=== PATIENT | male | born 1960 | race Caucasian/White ===

== ENCOUNTER 2016-09-04 14:35 | Emergency (ER) | payer BC ==
[2016-09-04 14:42] VITALS: RESP 18
--- NOTE | 2016-09-04 15:27 | ED ---
General Adult HPI - General Chief complaint: Recheck/Abnormal Lab/Rx Stated complaint: labs-sent by Time Seen by Provider: 09/04/16 14:48 Source: patient, RN notes reviewed Mode of arrival: ambulatory Limitations: no limitations - History of Present Illness Initial comments: Chief complaint and history of present illness is a 55-year-old male was having a sore throat for 3 weeks. He was treated sulfamethoxazole. Continues to have a beefy red throat. He had lab work done yesterday and was told to come the emergency room for rehydration. Patient is otherwise denying any headache he has chronic neck pain. Cervical disc disease. No chest pain or shortness of breath. He has had diarrhea for 2 days. - Related Data Home Medications Medication Instructions Recorded Confirmed Gabapentin [Neurontin] 800 mg PO TID 09/21/13 09/04/16 Hydrocodone/Acetaminophen 1 tab PO TID 09/21/13 09/04/16 [Hydrocodone/Acetaminophen 10-325] Omeprazole [PriLOSEC] 40 mg PO DAILY 09/21/13 09/04/16 ALPRAZolam [Xanax] 1 mg PO DAILY 01/14/14 09/04/16 Varenicline Tartrate [Chantix] 1 tab PO DAILY 09/03/14 09/04/16 Testosterone Cypionate 100 mg IM SA 09/04/14 09/04/16 [Depo-Testosterone] Buprenorphine [Butrans 20 MCG/HOUR] 1 patch TRANSDERM PIMENTEL 09/04/16 09/04/16 Carbidopa-Levodopa 10-100 mg 1 tab PO TID 09/04/16 09/04/16 [Sinemet 10-100] Diphenoxylate HCl/Atropine 2 tab PO BID 09/04/16 09/04/16 [Lomotil] Fluconazole [Diflucan] 150 mg PO DAILY 09/04/16 09/04/16 Mometasone/Formoterol [Dulera 200 2 puff INHALATION RT-BID 09/04/16 09/04/16 Mcg/5 Mcg Inhaler] PARoxetine HCL [Paxil] 40 mg PO DAILY 09/04/16 09/04/16 Phentermine HCl [Adipex-P] 37.5 mg PO QAM 09/04/16 09/04/16 Ranitidine HCl [Zantac] 150 mg PO BID 09/04/16 09/04/16 Roflumilast [Daliresp] 500 mg PO DAILY 09/04/16 09/04/16 Sucralfate [Carafate] 1 gm PO QID 09/04/16 09/04/16 Sulfamethox-Tmp 800-160Mg [Bactrim 1 tab PO Q12HR 09/04/16 09/04/16 DS 800-160 mg] Tamsulosin HCl [Flomax] 0.4 mg PO DAILY 09/04/16 09/04/16 Topiramate [Topamax] 50 mg PO BID 09/04/16 09/04/16 Umeclidinium Brm/Vilanterol Tr 1 puff INHALATION RT-BID 09/04/16 09/04/16 [Anoro Ellipta 62.5-25 Mcg INH] Allergies Allergy/AdvReac Type Severity Reaction Status Date / Time albuterol sulfate AdvReac Unknown Verified 09/04/16 15:02 [From Volmax] methylprednisolone AdvReac Rash/Hives Verified 09/04/16 15:02 [From Medrol] Review of Systems ROS Statement: Those systems with pertinent positive or pertinent negative responses have been documented in the HPI. Review of systems. Patient denying any headache. He does have continuous sore throat for 3 weeks with beefy red. He has chronic neck pain for cervical disc disease. He's had multiple surgeries on his neck. No chest pain or shortness of breath this time the patient has had loose stool for 2 days. No neuro deficits. All systems reviewed Labs drawn at the physician's office findings a rolled the low GFR 52, elevated SGOT of 89 CK of 1297, myoglobin elevated at 559, absolute neutrophils 9.5 anion gap 2.8, low liver enzymes otherwise within normal limits. ROS Other: All systems not noted in ROS Statement are negative. Past Medical History Past Medical History: Cancer, COPD, GERD/Reflux Additional Past Medical History / Comment(s): degenerative disk back and neck, numbness fingers left hand (resolved), sob , skin cancer History of Any Multi-Drug Resistant Organisms: None Reported Past Surgical History: Back Surgery, Hernia Repair, Orthopedic Surgery Additional Past Surgical History / Comment(s): neck surgery x 2, back fusion, lithotripsy, orif rt wrist, rt ankle tendon surgery, manuel eye surgery for lazy eye Past Anesthesia/Blood Transfusion Reactions: No Reported Reaction Past Psychological History: Anxiety Smoking Status: Current every day smoker Past Alcohol Use History: None Reported, Occasional Past Drug Use History: None Reported - Past Family History Father Family Medical History: Unable to Obtain General Exam Limitations: no limitations Course Vital Signs 09/04/16 14:38 Temperature 98.9 F Pulse Rate 103 H Respiratory 18 Rate Blood Pressure 145/84 O2 Sat by Pulse 95 Oximetry EKG Findings - EKG Comments: EKG Findings:: EKG was done and reviewed at 1627 showing sinus bradycardia rate [address] elevation no ectopy. No ischemic changes noted. HI was 116 QRS [address] QT [address] George Medical Decision Making - Medical Decision Making Medical decision making the patient's white count 11.4 hemoglobin 15 hematocrit of 49, potassium is 4.5 with BUN 12 creatinine 1.37 and GFR 54. Patient denies knowing never had any renal insufficiency acute renal injury in the past. CK 684 MB is 13.1 troponin less than 0.012. The patient did have an EKG done which showed sinus bradycardia but no acute elevation or ischemic changes. Upon questioning the patient denies any chest pain but does report muscle aches and pains for at least a week or more. Without any injuries to his knowledge or overexercising. He is on multiple medications. Recently diagnosed Parkinson medications of, board. He is also on Chantix for smoking. - Lab Data Result diagrams: 09/04/16 15:27 09/04/16 15:27 Lab Results 09/04/16 09/04/16 09/04/16 Range/Units 15:27 15:27 15:27 WBC 11.4 H (3.8-10.6) k/uL RBC 5.14 (4.30-5.90) m/uL Hgb 15.4 (13.0-17.5) gm/dL Hct 49.5 (39.0-53.0) % MCV 96.5 (80.0-100.0) fL MCH 30.0 (25.0-35.0) pg MCHC 31.1 (31.0-37.0) g/dL RDW 15.8 H (11.5-15.5) % Plt Count 218 (150-450) k/uL Neutrophils % 82 % Lymphocytes % 10 % Monocytes % 5 % Eosinophils % 1 % Basophils % 1 % Neutrophils # 9.3 H (1.3-7.7) k/uL Lymphocytes # 1.1 (1.0-4.8) k/uL Monocytes # 0.6 (0-1.0) k/uL Eosinophils # 0.1 (0-0.7) k/uL Basophils # 0.1 (0-0.2) k/uL Hypochromasia Slight Sodium 143 (137-145) mmol/L Potassium 4.5 (3.5-5.1) mmol/L Chloride 108 H (98-107) mmol/L Carbon Dioxide 25 (22-30) mmol/L Anion Gap 10 mmol/L BUN 12 (9-20) mg/dL Creatinine 1.37 H (0.66-1.25) mg/dL Est GFR (MDRD) Af Amer >60 (>60 ml/min/1.73 sqM) Est GFR (MDRD) Non-Af 54 (>60 ml/min/1.73 sqM) Glucose 70 L (74-99) mg/dL Calcium 9.7 (8.4-10.2) mg/dL Total Bilirubin 0.5 (0.2-1.3) mg/dL AST 76 H (17-59) U/L ALT 61 (21-72) U/L Alkaline Phosphatase 84 (38-126) U/L Total Creatine Kinase 684 H (55-170) U/L CK-MB (CK-2) 13.1 H* (0.0-2.4) ng/mL CK-MB (CK-2) Rel Index 1.9 Troponin I <0.012 (0.000-0.034) ng/mL Total Protein 7.1 (6.3-8.2) g/dL Albumin 4.0 (3.5-5.0) g/dL Disposition Clinical Impression: Acute renal failure due to rhabdomyolysis Disposition: ADMITTED IP TO THIS HOSP Condition: Fair
[2016-09-04 15:40] LABS: Basophils # (A) 0.1 k/uL (0-0.2); Basophils % (A) 1 %; CH 30.5; CHCM 31.7; Eosinophils # (A) 0.1 k/uL (0-0.7); Eosinophils % (A) 1 %; HCT 49.5 % (39.0-53.0); HDW 2.66; HGB 15.4 gm/dL (13.0-17.5); Hypochromasia Slight; Luc # (Auto) 0.19; Luc % (Auto) 2; Lymphocytes # (A) 1.1 k/uL (1.0-4.8); Lymphocytes % (A) 10 %; MCHC 31.1 g/dL (31.0-37.0); MCV 96.5 fL (80.0-100.0); Mean Platelet Volume 6.3; Monocytes # (A) 0.6 k/uL (0-1.0); Monocytes % (A) 5 %; Neutrophils # (A) 9.3 k/uL (1.3-7.7); Neutrophils % (A) 82 %; RBC 5.14 m/uL (4.30-5.90); RDW 15.8 % (11.5-15.5); WBC 11.4 k/uL (3.8-10.6); WBC (Perox) 11.43
[2016-09-04 15:45] LABS: ALT 61 U/L (21-72); AST 76 U/L (17-59); Alkaline Phosphatase 84 U/L (38-126); Anion Gap 10 mmol/L; Blood Urea Nitrogen 12 mg/dL (9-20); Calcium 9.7 mg/dL (8.4-10.2); Carbon Dioxide 25 mmol/L (22-30); Chloride 108 mmol/L (98-107); Glucose 70 mg/dL (74-99); Non-African American GFR(MDRD) 54 (>60 ml/min/1.73 sqM); Potassium 4.5 mmol/L (3.5-5.1); Sodium 143 mmol/L (137-145); Total Bilirubin 0.5 mg/dL (0.2-1.3); Total Protein 7.1 g/dL (6.3-8.2)
[2016-09-04 15:56] LABS: Creatine Kinase 684 U/L (55-170)
[2016-09-04 16:09] LABS: Troponin I <0.012 ng/mL (0.000-0.034)
[2016-09-04 16:12] LABS: Creatine Kinase MB 13.1 ng/mL (0.0-2.4)
[2016-09-04] MEDS ORDERED: SODIUM CHLORIDE 0.9% 2,000 ML IV ONE (16:23)
[2016-09-04] MEDS ORDERED: NALOXONE 0.4 MG/ML 1 ML VIAL IV PRN (16:39)
[2016-09-04] MEDS ORDERED: SODIUM CHLORIDE 0.9% 1,000 ML IV SCH (16:45)
[2016-09-04 17:06] LABS: Appearance,Urine Clear (Clear); Bilirubin,Urine Negative (Negative); Glucose,Urine (UA) Negative (Negative); Ketones,Urine Negative (Negative); Leukocyte Esterase,Urine Negative (Negative); Nitrite,Urine Negative (Negative); PH, Urine 6.5 (5.0-8.0); Protein,Urine Negative (Negative); Specific Gravity,Urine 1.009 (1.001-1.035); UA Billing (MACRO vs. MICRO) CHEM; Urobilinogen,Urine <2.0 mg/dL (<2.0)
[2016-09-04] MEDS ORDERED: SUCRALFATE 1 GM TAB PO SCH (17:30)
[2016-09-04 17:58] VITALS: BP 147/88; PULSE 56; TEMP 98.8
[2016-09-04] MEDS ORDERED: SYMBICORT 160-4.5 MCG INHALER INHALATION SCH (20:00)
[2016-09-04] MEDS ORDERED: NON-FORMULARY DRUG (Umeclidinium Brm/Vilanterol Tr [Anoro Ellipta 62.5-25 Mcg Inh] 1 PUFF) INHALATION SCH (20:00)
[2016-09-04] MEDS ORDERED: TOPIRAMATE 25 MG TAB PO SCH (21:00)
--- NOTE | 2016-09-04 21:41 | HP ---
H&P, DISCHARGE SUMMARY AND CONSULTATION DATE OF ADMISSION: Patient is a pleasant 55-year-old gentleman who was sent in here from ( ) PCP ( ) clinic because of abnormal labs, including minimally elevated CK of 700. Patient was seen about 3 weeks ago ( ) and patient was given Bactrim. Continues to have a sore throat. Patient came in here to the ER for hydration and patient received 2 L of IV fluid already. Patient was found to be in acute renal failure with creatinine of 1.20. Baseline creatinine ( ) I believe worsening creatinine is secondary to the Bactrim he received. Most of the time Bactrim causes ( ). I ordered urine labs, including urine esophinophils, ( ) random creatinine and ( ) sodium. Patient in my opinion can be discharged, as he received 2 L of IV fluids, and same thing was conveyed to the ER physician. Patient will be discharged. Patient was wheezing on exam. Patient does have history of COPD. I also requested ( ) albuterol, follow up with ( ) cessation counseling was provided. Follow up with Dr. David closely in 3 to 7 days. Regarding elevated CK, there is only minimal elevation. My suspicion is extremely low that it causes rhabdomyolysis or any kidney dysfunction. His kidney dysfunction is secondary to Bactrim. Urine ( ) ordered as well. REVIEW OF SYSTEMS: CONSTITUTIONAL: No fever, no malaise, no fatigue. HEENT: No recent visual problems or hearing problems. Denied any sore throat. CARDIOVASCULAR: No chest pain, orthopnea, PND, no palpitations, no syncope. PULMONARY: No shortness of breath, no cough, no hemoptysis. GASTROINTESTINAL: No diarrhea, no nausea, no vomiting, no abdominal pain. Normoactive bowel sounds. NEUROLOGICAL: No headaches, no weakness, no numbness. HEMATOLOGICAL: Denies any bleeding or petechiae. GENITOURINARY: Denies any burning micturition, frequency, or urgency. MUSCULOSKELETAL/RHEUMATOLOGICAL: Denies any joint pain, swelling, or any muscle pain. ENDOCRINE: Denies any polyuria or polydipsia. ( ) still complaining of sore throat with cough and ( ) sputum production. The rest of the 14 point review of systems is negative. Home medications include: 1. Gabapentin. 2. Hydrocodone/acetaminophen. 3. Omeprazole. 4. Alprazolam. 5. Varenicline. 6. Testosterone. 7. Bupropion. 8. Carbidopa levodopa. 9. Diphenoxylate. 10. Fluconazole. 11. Mometasone/Formoterol. 12. Paroxetine. 13. Phentermine. 14. Ranitidine. 15. Daliresp. 16. Sucralfate. 17. Bactrim. 18. Tamsulosin. 19. Topamax. ALLERGIES: ALBUTEROL, METHYLPREDNISOLONE. Past medical history is significant for: 1. COPD. 2. Gastroesophageal reflux disease. 3. Degenerative neck disease. 4. Benign prostatic hypertrophy. 5. Not sure why he is taking carbidopa levodopa. SOCIAL HISTORY: Patient does smoke. Using Chantix ( ) for smoking. Denied any alcohol abuse or any drug abuse. FAMILY HISTORY: Denied any family history of hypertension, diabetes mellitus ( ) PHYSICAL EXAMINATION: Temperature 98.1, pulse of 103, respiratory rate of 18. Blood pressure is 145/84. Saturating at 94% on room air. GENERAL: The patient is alert and oriented x3, not in any acute distress. Well developed, well nourished. HEENT: Patient does have redness in the throat. CARDIOVASCULAR: S1 and S2 present. No murmurs, rubs, or gallops. PULMONARY: Diffuse expiratory wheezing. Fairly good air entry into bilateral lung carrillo. No crackles appreciated. ABDOMEN: Soft, nontender, nondistended, normoactive bowel sounds. No palpable organomegaly. MUSCULOSKELETAL: No joint swelling or deformity. EXTREMITIES: No cyanosis, clubbing, or pedal edema. NEUROLOGICAL: Gross neurological examination did not reveal any focal deficits. SKIN: No rashes. LABORATORY DATA: Significant ones ( ) HPI. ASSESSMENT AND PLAN: 1. Bronchitis with mild chronic obstructive pulmonary disease exacerbation. Management as mentioned above. Although patient is clinically stable, can be discharged. 2. Acute renal failure secondary to Bactrim. Management as mentioned above. 3. ( ) dysfunction. May repeat basic metabolic profile in 3 days. 4. Troponin is negative. CK-MB is minimally elevated, but since troponin is negative, my suspicion is low ( ) patient does not have any symptoms related to chest pain. 5. Gastroesophageal reflux disease. 6. Benign prostatic hypertrophy. 7. Peripheral neuropathy. For above-mentioned chronic medical problems, he can go ahead and continue his home medications. Patient can be discharged from my perspective. This dictation is both H&P and discharge summary. Patient will follow up with Dr. Saeed David in 3 to 7 days. Patient is requesting to be discharged. Patient will be given doxycycline for his bronchitis, which appears to be chronic bronchitis mostly.
[2016-09-04] MEDS ORDERED: CARBIDOPA-LEVODOPA 10-100 MG 1 EACH TAB PO SCH (22:00)
[2016-09-04] MEDS ORDERED: HYDROcodone/APAP 10-325MG 1 EACH TAB PO SCH (22:00)
[2016-09-04] MEDS ORDERED: GABAPENTIN 400 MG CAP PO SCH (22:00)
[2016-09-05] MEDS ORDERED: VARENICLINE 1 MG TAB PO SCH (09:00)
[2016-09-05] MEDS ORDERED: PARoxetine 20 MG TAB PO SCH (09:00)
[2016-09-05] MEDS ORDERED: TAMSULOSIN 0.4 MG CAP.ER.24H PO SCH (09:00)
[2016-09-05] MEDS ORDERED: FLUCONAZOLE 150 MG TAB PO SCH (09:00)
[2016-09-05] MEDS ORDERED: ROFLUMILAST 500 MG PO SCH (09:00)
[2016-09-05] MEDS ORDERED: ALPRAZolam 0.5 MG TAB PO SCH (09:00)
[2016-09-05] MEDS ORDERED: PANTOPRAZOLE 40 MG/10 ML VIAL IV SCH (09:00)
[2016-09-08] MEDS ORDERED: BUPRENORPHINE TRANSDERM SCH (09:00)
== END 2016-09-04 17:58 | disposition other institution (70) ==
LOC: EC 14:35 → UNDOADMIN 16:39 → 4MS4W 16:39 → EC 17:58
DX: M62.82 Rhabdomyolysis (principal); N17.9 Acute kidney failure, unspecified; K21.9 Gastro-esophageal reflux disease without esophagitis; F41.9 Anxiety disorder, unspecified; F17.200 Nicotine dependence, unspecified, uncomplicated; Z85.828 Personal history of other malignant neoplasm of skin; Z88.8 Allergy status to other drugs, medicaments and biological substances; Z79.899 Other long term (current) drug therapy
CPT/HCPCS: 36415; 80053; 81003; 82550; 82553; 82570; 84300; 84484; 85025; 87086; 87205; 93005; 96360; 99284

== ENCOUNTER → 2016-09-12 | Outpatient (CLI) | payer BC ==
[2016-09-12 15:40] LABS: Anion Gap 8 mmol/L; Blood Urea Nitrogen 10 mg/dL (9-20); Calcium 9.5 mg/dL (8.4-10.2); Carbon Dioxide 31 mmol/L (22-30); Chloride 100 mmol/L (98-107); Glucose 96 mg/dL (74-99); Non-African American GFR(MDRD) >60 (>60 ml/min/1.73 sqM); Potassium 4.7 mmol/L (3.5-5.1); Sodium 139 mmol/L (137-145)
== END | disposition home or self-care (01) ==
LOC: LABWHC1 14:45
PROVIDERS: ATTEND Physician Assistant
DX: N17.9 Acute kidney failure, unspecified (principal)
CPT/HCPCS: 36415; 80048

== ENCOUNTER → 2016-10-11 | Outpatient (CLI) | payer BC ==
[2016-10-11 16:33] LABS: Rheumatoid Factor, Qnt <9 IU/mL (<12)
== END ==
LOC: LABWHC1 15:51
PROVIDERS: ATTEND Otolaryngology
DX: J38.01 Paralysis of vocal cords and larynx, unilateral (principal); R53.83 Other fatigue; R52 Pain, unspecified
CPT/HCPCS: 36415; 84439; 84443; 86038; 86431; 86618

== ENCOUNTER → 2016-10-17 | Outpatient (CLI) | payer BC ==
--- NOTE | 2016-10-17 08:50 | CT ---
EXAMINATION TYPE: CT neck chest w con DATE OF EXAM: 10/17/2016 8:00 AM COMPARISON: NONE HISTORY: Lt vocal cord paralysis, cough per order. CT DLP: neck 273.1 and chest 347.7 mGycm Automated exposure control for dose reduction was used. CONTRAST: CT scan of the neck and chest are performed following with IV Contrast, patient injected with 100 mL of Omnipaque 300. Axial images are obtained, coronal and sagittal reformatted images are reviewed. FINDINGS: NECK: Airway: There is nonspecific asymmetric fullness right piriform sinus without obvious mass seen near axial images 33 through 35. Parotid/submandibular glands: No gross abnormality seen. Carotid/Vascular Structures: No significant stenosis of carotid bulb level is present bilaterally Osseous Structures: There is hemangioma anterior T4 vertebral body level. There is moderate to severe disc space narrowing C5-C6, C6-C7, C7-T1 levels. Moderate spurring C6-C7 and C7-T1 levels is seen. T here is long segment posterior decompression in the cervical spine from C3 through T1 level. Other: No suspicious greater than 1 cm neck adenopathy is seen. CHEST: LUNGS: Respiratory motion artifact is present making evaluation slightly suboptimal. Linear scarring posterior right upper lobe is present on axial image 22. No concerning parenchymal nodule or mass is identified. No pleural effusion or pneumothorax is seen bilaterally. Tracheobronchial tree is patent. MEDIASTINUM: There are no greater than 1 cm hilar or mediastinal lymph nodes. No cardiomegaly or pe ricardial effusion is seen. Coronary artery calcification is present. OTHER: Small degree of bilateral gynecomastia is present. There is 4 mm nonobstructing calculus upper pole level right kidney. Multilevel osseous hemangiomas are identified largest near thoracolumbar ju nction. IMPRESSION: 1. Asymmetric soft tissue fullness of right piriform sinus without obvious mass, consider direct visu alization otherwise no suspicious finding is seen to account for patient's symptoms. 2. Mild emphysematous change without suspicious acute pulmonary process. 3. Moderate to severe multilevel degenerative changes mid to lower cervical spine with posterior long segment decompression surgery noted.
== END | disposition home or self-care (01) ==
LOC: RADCTMAIN 07:19
PROVIDERS: ATTEND Otolaryngology
DX: J43.9 Emphysema, unspecified (principal); M47.812 Spondylosis without myelopathy or radiculopathy, cervical region; R13.10 Dysphagia, unspecified; J38.01 Paralysis of vocal cords and larynx, unilateral; Z98.890 Other specified postprocedural states
CPT/HCPCS: 70491; 71260; Q9967

== ENCOUNTER 2016-10-21 21:25 | Emergency (ER) | payer BC ==
[2016-10-21 21:38] VITALS: RESP 18
[2016-10-21] MEDS ORDERED: ONDANSETRON 4 MG/2 ML VIAL IVP STA (22:49)
[2016-10-21] MEDS ORDERED: SODIUM CHLORIDE 0.9% 500 ML IV STA (22:49)
--- NOTE | 2016-10-21 22:54 | ED ---
Abdominal Pain HPI - General Chief Complaint: Abdominal Pain Stated Complaint: Abd Pain Time Seen by Provider: 10/21/16 22:29 Source: patient Mode of arrival: wheelchair Limitations: no limitations - History of Present Illness MD Complaint: abdominal pain Onset/Timin -: hour(s) Location: periumbilical Radiation: none Migration to: no migration Severity: severe Quality: sharp Consistency: constant Improves With: nothing Worsens With: nothing Associated Symptoms: nausea - Related Data Home Medications Medication Instructions Recorded Confirmed Gabapentin [Neurontin] 800 mg PO TID 09/21/13 10/21/16 Hydrocodone/Acetaminophen 1 tab PO TID 09/21/13 10/21/16 [Hydrocodone/Acetaminophen 10-325] Omeprazole [PriLOSEC] 40 mg PO DAILY 09/21/13 10/21/16 ALPRAZolam [Xanax] 1 mg PO DAILY 01/14/14 10/21/16 Varenicline Tartrate [Chantix] 1 tab PO DAILY 09/03/14 10/21/16 Testosterone Cypionate 100 mg IM SA 09/04/14 10/21/16 [Depo-Testosterone] Buprenorphine [Butrans 20 MCG/HOUR] 1 patch TRANSDERM PIMENTEL 09/04/16 10/21/16 Carbidopa-Levodopa 10-100 mg 1 tab PO TID 09/04/16 10/21/16 [Sinemet 10-100] Diphenoxylate HCl/Atropine 2 tab PO BID 09/04/16 10/21/16 [Lomotil] Fluconazole [Diflucan] 150 mg PO DAILY 09/04/16 10/21/16 Mometasone/Formoterol [Dulera 200 2 puff INHALATION RT-BID 09/04/16 10/21/16 Mcg/5 Mcg Inhaler] PARoxetine HCL [Paxil] 40 mg PO DAILY 09/04/16 10/21/16 Phentermine HCl [Adipex-P] 37.5 mg PO QAM 09/04/16 10/21/16 Ranitidine HCl [Zantac] 150 mg PO BID 09/04/16 10/21/16 Roflumilast [Daliresp] 500 mg PO DAILY 09/04/16 10/21/16 Sucralfate [Carafate] 1 gm PO QID 09/04/16 10/21/16 Sulfamethox-Tmp 800-160Mg [Bactrim 1 tab PO Q12HR 09/04/16 10/21/16 DS 800-160 mg] Tamsulosin HCl [Flomax] 0.4 mg PO DAILY 09/04/16 10/21/16 Topiramate [Topamax] 50 mg PO BID 09/04/16 10/21/16 Umeclidinium Brm/Vilanterol Tr 1 puff INHALATION RT-BID 09/04/16 10/21/16 [Anoro Ellipta 62.5-25 Mcg INH] Previous Rx's Medication Instructions Recorded Albuterol Nebulized [Ventolin 2.5 mg INHALATION Q4H PRN 10 Days 09/04/16 Nebulized] Budesonide-Formot 160-4.5 Mcg 2 puff INHALATION BID 14 Days 09/04/16 [Symbicort 160-4.5 Mcg Inhaler] Doxycycline Hyclate [Vibramycin] 100 mg PO BID 10 Days 09/04/16 Hydrocodone/Acetaminophen [Butler 1 each PO Q6HR PRN #20 tab 10/22/16 5-325] Ondansetron Odt [Zofran ODT] 4 mg PO Q8HR PRN #10 tab 10/22/16 Tamsulosin [Flomax] 0.4 mg PO DAILY #14 cap 10/22/16 Allergies Allergy/AdvReac Type Severity Reaction Status Date / Time albuterol sulfate AdvReac Unknown Verified 10/21/16 21:38 [From Volmax] methylprednisolone AdvReac Rash/Hives Verified 10/21/16 21:38 [From Medrol] Review of Systems ROS Statement: Those systems with pertinent positive or pertinent negative responses have been documented in the HPI. ROS Other: All systems not noted in ROS Statement are negative. Constitutional: Denies: fever, chills Respiratory: Reports: cough (States he has some baseline cough and mild dyspnea due to COPD), dyspnea, wheezes Cardiovascular: Denies: chest pain, palpitations, edema Gastrointestinal: Reports: as per HPI, abdominal pain, nausea, diarrhea ( Patient states he is been having diarrhea but states she has had normal bowel movements today). Denies: vomiting, constipation, hematemesis, melena, hematochezia Genitourinary: Denies: dysuria, hematuria Musculoskeletal: Reports: back pain (Chronic back pain) Skin: Denies: rash Neurological: Denies: headache, weakness, numbness Past Medical History Past Medical History: Cancer, COPD, GERD/Reflux Additional Past Medical History / Comment(s): degenerative disk back and neck, numbness fingers left hand (resolved), sob , skin cancer History of Any Multi-Drug Resistant Organisms: None Reported Past Surgical History: Back Surgery, Hernia Repair, Orthopedic Surgery Additional Past Surgical History / Comment(s): neck surgery x 2, back fusion, lithotripsy, orif rt wrist, rt ankle tendon surgery, manuel eye surgery for lazy eye Past Anesthesia/Blood Transfusion Reactions: No Reported Reaction Past Psychological History: Anxiety Smoking Status: Current every day smoker Past Alcohol Use History: None Reported, Occasional Past Drug Use History: None Reported - Past Family History Father Family Medical History: Unable to Obtain General Exam Limitations: no limitations General appearance: alert, in no apparent distress Head exam: Present: atraumatic, normocephalic Eye exam: Present: normal appearance. Absent: scleral icterus, conjunctival injection ENT exam: Present: normal oropharynx Respiratory exam: Present: normal lung sounds bilaterally. Absent: respiratory distress, wheezes, rales, rhonchi, stridor Cardiovascular Exam: Present: regular rate, normal rhythm, normal heart sounds. Absent: systolic murmur, diastolic murmur, rubs, gallop GI/Abdominal exam: Present: tenderness, rigid, diminished bowel sounds. Absent : distended, mass, pulsatile mass, hernia Extremities exam: Present: normal inspection, normal capillary refill. Absent: pedal edema, calf tenderness Back exam: Present: normal inspection. Absent: CVA tenderness (R), CVA tenderness (L) Neurological exam: Present: alert Skin exam: Present: warm, dry, intact, normal color. Absent: rash Course Vital Signs 10/21/16 10/22/16 21:34 00:14 Temperature 98.0 F 98.7 F Pulse Rate 67 61 Respiratory 18 18 Rate Blood Pressure 167/82 168/91 O2 Sat by Pulse 97 95 Oximetry Medical Decision Making - Lab Data Result diagrams: 10/21/16 23:08 10/21/16 23:08 Lab Results 10/21/16 10/21/16 10/21/16 Range/Units 23:08 23:08 23:08 WBC 10.1 (3.8-10.6) k/uL RBC 5.00 (4.30-5.90) m/uL Hgb 15.8 (13.0-17.5) gm/dL Hct 46.8 (39.0-53.0) % MCV 93.6 (80.0-100.0) fL MCH 31.6 (25.0-35.0) pg MCHC 33.7 (31.0-37.0) g/dL RDW 13.9 (11.5-15.5) % Plt Count 204 (150-450) k/uL Neutrophils % 76 % Lymphocytes % 15 % Monocytes % 5 % Eosinophils % 1 % Basophils % 1 % Neutrophils # 7.7 (1.3-7.7) k/uL Lymphocytes # 1.5 (1.0-4.8) k/uL Monocytes # 0.5 (0-1.0) k/uL Eosinophils # 0.1 (0-0.7) k/uL Basophils # 0.1 (0-0.2) k/uL Sodium 146 H (137-145) mmol/L Potassium 4.4 (3.5-5.1) mmol/L Chloride 107 (98-107) mmol/L Carbon Dioxide 26 (22-30) mmol/L Anion Gap 13 mmol/L BUN 16 (9-20) mg/dL Creatinine 1.50 H (0.66-1.25) mg/dL Est GFR (MDRD) Af Amer 59 (>60 ml/min/1.73 sqM) Est GFR (MDRD) Non-Af 49 (>60 ml/min/1.73 sqM) Glucose 105 H (74-99) mg/dL Plasma Lactic Acid Dylan 2.0 (0.7-2.0) mmol/L Calcium 9.9 (8.4-10.2) mg/dL Total Bilirubin 0.4 (0.2-1.3) mg/dL AST 28 (17-59) U/L ALT 34 (21-72) U/L Alkaline Phosphatase 92 (38-126) U/L Troponin I (0.000-0.034) ng/mL Total Protein 7.2 (6.3-8.2) g/dL Albumin 4.5 (3.5-5.0) g/dL Amylase 64 (30-110) U/L Lipase 89 (23-300) U/L 10/21/16 Range/Units 23:08 WBC (3.8-10.6) k/uL RBC (4.30-5.90) m/uL Hgb (13.0-17.5) gm/dL Hct (39.0-53.0) % MCV (80.0-100.0) fL MCH (25.0-35.0) pg MCHC (31.0-37.0) g/dL RDW (11.5-15.5) % Plt Count (150-450) k/uL Neutrophils % % Lymphocytes % % Monocytes % % Eosinophils % % Basophils % % Neutrophils # (1.3-7.7) k/uL Lymphocytes # (1.0-4.8) k/uL Monocytes # (0-1.0) k/uL Eosinophils # (0-0.7) k/uL Basophils # (0-0.2) k/uL Sodium (137-145) mmol/L Potassium (3.5-5.1) mmol/L Chloride (98-107) mmol/L Carbon Dioxide (22-30) mmol/L Anion Gap mmol/L BUN (9-20) mg/dL Creatinine (0.66-1.25) mg/dL Est GFR (MDRD) Af Amer (>60 ml/min/1.73 sqM) Est GFR (MDRD) Non-Af (>60 ml/min/1.73 sqM) Glucose (74-99) mg/dL Plasma Lactic Acid Dylan (0.7-2.0) mmol/L Calcium (8.4-10.2) mg/dL Total Bilirubin (0.2-1.3) mg/dL AST (17-59) U/L ALT (21-72) U/L Alkaline Phosphatase (38-126) U/L Troponin I <0.012 (0.000-0.034) ng/mL Total Protein (6.3-8.2) g/dL Albumin (3.5-5.0) g/dL Amylase (30-110) U/L Lipase (23-300) U/L Disposition Clinical Impression: Kidney stone on right side Disposition: HOME SELF-CARE Condition: Fair Instructions: Kidney Stones (ED) Prescriptions: Hydrocodone/Acetaminophen [Butler 5-325] 1 each PO Q6HR PRN #20 tab PRN Reason: Pain Ondansetron Odt [Zofran ODT] 4 mg PO Q8HR PRN #10 tab PRN Reason: Nausea Tamsulosin [Flomax] 0.4 mg PO DAILY #14 cap Referrals: Saeed David MD [Primary Care Provider] - 1-2 days
[2016-10-21 23:23] LABS: Basophils # (A) 0.1 k/uL (0-0.2); Basophils % (A) 1 %; CHCM 34.2; Eosinophils # (A) 0.1 k/uL (0-0.7); Eosinophils % (A) 1 %; HCT 46.8 % (39.0-53.0); HDW 3.14; HGB 15.8 gm/dL (13.0-17.5); Luc # (Auto) 0.17; Luc % (Auto) 2; Lymphocytes # (A) 1.5 k/uL (1.0-4.8); Lymphocytes % (A) 15 %; MCH 31.6 pg (25.0-35.0); MCHC 33.7 g/dL (31.0-37.0); MCV 93.6 fL (80.0-100.0); Monocytes # (A) 0.5 k/uL (0-1.0); Monocytes % (A) 5 %; Neutrophils # (A) 7.7 k/uL (1.3-7.7); Neutrophils % (A) 76 %; RDW 13.9 % (11.5-15.5); WBC 10.1 k/uL (3.8-10.6); WBC (Perox) 9.75
[2016-10-21 23:36] LABS: Calcium 9.9 mg/dL (8.4-10.2); Potassium 4.4 mmol/L (3.5-5.1); Total Bilirubin 0.4 mg/dL (0.2-1.3); Total Protein 7.2 g/dL (6.3-8.2)
[2016-10-22] MEDS ORDERED: MORPHINE SULFATE 4 MG/ML SYRINGE IV STA
--- NOTE | 2016-10-22 00:05 | CT ---
EXAM: CT Abdomen and Pelvis Without Intravenous Contrast CLINICAL HISTORY: Reason: abdominal pain TECHNIQUE: Axial computed tomography images of the abdomen and pelvis without intravenous contrast. CTDI is 7.2 mGy and DLP is 313.9 mGy-cm. This CT exam was performed using one or more of the following dose reduction techniques: automated exposure control, adjustment of the mA and/or kV according to patient size, and/or use of iterative reconstruction technique. Coronal and sagittal reformatted images were created and reviewed. COMPARISON: CT L Spine dated 01/19/14 FINDINGS: Lower thorax: No acute findings. ABDOMEN: Liver: Unremarkable. Gallbladder and bile ducts: Unremarkable. No calcified stones. No ductal dilation. Pancreas: Unremarkable. No ductal dilation. Spleen: Unremarkable. No splenomegaly. Adrenals: Unremarkable. No mass. Kidneys and ureters: Moderate right hydronephrosis with a 6.7 mm mid ureteral calculus. Bilateral renal cystic lesions are seen measuring up to 4.8 cm on the right and 1.6 cm on left. Bilateral intrarenal calculi are seen measuring up to 3 mm on the right and 4.4 mm on the left. Stomach and bowel: Unremarkable. No obstruction. No mucosal thickening. Appendix: No findings to suggest acute appendicitis. PELVIS: Bladder: Mild bladder wall thickening which may be from cystitis versus chronic outlet obstruction. Reproductive: Unremarkable as visualized. ABDOMEN and PELVIS: Intraperitoneal space: Unremarkable. No free air. No significant fluid collection. Bones/joints: L3-L5 laminectomy with posterior pedicle screws and interconnecting rods at L4 and L5. Associated postsurgical changes in the left iliac bone. Severe facet disease is seen at L2/L3 and L3/L4. Extensive vertebral body hemangiomas also seen. Soft tissues: Unremarkable. Vasculature: Unremarkable. No abdominal aortic aneurysm. Lymph nodes: Unremarkable. No enlarged lymph nodes. IMPRESSION: 1. Moderate right hydronephrosis with a 6.7 mm mid ureteral calculus. 2. Mild bladder wall thickening which may be from cystitis versus chronic outlet obstruction. 3. Bilateral renal cystic lesions are seen measuring up to 4.8 cm on the right and 1.6 cm on left. 4. Bilateral intrarenal calculi are seen measuring up to 3 mm on the right and 4.4 mm on the left. 5. L3-L5 laminectomy with posterior pedicle screws and interconnecting rods at L4 and L5. Associated postsurgical changes in the left iliac bone.
[2016-10-22] MEDS ORDERED: TAMSULOSIN 0.4 MG CAP.ER.24H PO STA (00:13)
[2016-10-22 01:40] VITALS: BP 158/85; PULSE 86; TEMP 98.8
== END 2016-10-22 01:30 | disposition home or self-care (01) ==
LOC: EC 21:25
DX: N20.0 Calculus of kidney (principal); K21.9 Gastro-esophageal reflux disease without esophagitis; J44.9 Chronic obstructive pulmonary disease, unspecified; F41.9 Anxiety disorder, unspecified; F17.200 Nicotine dependence, unspecified, uncomplicated; Z79.891 Long term (current) use of opiate analgesic; Z79.899 Other long term (current) drug therapy; Z88.8 Allergy status to other drugs, medicaments and biological substances; Z85.828 Personal history of other malignant neoplasm of skin; Z98.890 Other specified postprocedural states
CPT/HCPCS: 36415; 80053; 82150; 83605; 83690; 84484; 85025; 74176; 99284; 96374; 96375; 96361; J2270; J2405

== ENCOUNTER → 2016-10-31 | Outpatient (CLI) | payer BC ==
--- NOTE | 2016-10-31 12:12 | XR ---
Abdomen HISTORY: Proximal right ureteral calculus Correlation to CT abdomen pelvis 10/21/2016 Frontal view of the abdomen submitted on a single image. Postop changes are noted in the lower lumbar spine. There is a calcification superimposed over the lo wer pole of the left kidney measuring approximately 4-5 mm, stable. Punctate calcification noted in t he lower pole of the right kidney as well as upper pole of the right kidney. Possible calcification s uperimposed over the right sacral ala. IMPRESSION: Suspect interval migration of patient's right ureteral calculus. Bilateral nephrolithiasi s.
== END | disposition home or self-care (01) ==
LOC: RADXRMAIN 10:05
PROVIDERS: ATTEND Urology
DX: N20.2 Calculus of kidney with calculus of ureter (principal)
CPT/HCPCS: 74000

== ENCOUNTER → 2016-11-04 | Outpatient (CLI) | payer BC ==
--- NOTE | 2016-11-04 10:12 | US ---
EXAMINATION TYPE: US kidneys/renal and bladder DATE OF EXAM: 11/04/2016 COMPARISON: ct 10/21/2016 CLINICAL HISTORY: R93.[address] EXAM MEASUREMENTS: Right Kidney: 9.9 x 5.2 x 5.8 cm Left Kidney: 10.8 x 5.2 x 4.4 cm Right Kidney: Mild hydronephrosis; and simple-appearing 4.9 cm exophytic right renal cyst. Calcificat ion seen by CT scan and renal calculi are not well seen by ultrasound. Left Kidney: 4 mm mid pole left renal calculus seen without hydronephrosis. There are 2 hypoechoic le sions involving the left kidney measuring 1.5 x 1.2 and 2 x 1.6 cm. Larger does not meet the criteria of a simple cyst. Bladder: mildly distended Bilateral Jets seen: no IMPRESSION: Mild right hydronephrosis appears stable from recent CT scan. Left-sided renal calculus stable. Right renal calculi not well seen. Simple appearing right renal cyst. Indeterminate left renal lesions. Consider MRI.
== END | disposition home or self-care (01) ==
LOC: RADUSMAIN 08:50
PROVIDERS: ATTEND Urology
DX: N13.30 Unspecified hydronephrosis (principal); N20.0 Calculus of kidney; N28.1 Cyst of kidney, acquired
CPT/HCPCS: 76770

== ENCOUNTER → 2016-11-14 | Outpatient (CLI) | payer BC ==
[2016-11-14 17:28] LABS: Blood Urea Nitrogen 10 mg/dL (9-20); Non-African American GFR(MDRD) >60 (>60 ml/min/1.73 sqM)
--- NOTE | 2016-11-14 21:17 | CT ---
EXAMINATION TYPE: CT abdomen pelvis w con DATE OF EXAM: 11/14/2016 COMPARISON: 10/21/2016, ultrasound 11/04/2016 HISTORY: Kidney stones/middle back pain. Hx of stones. CT DLP: 1049 mGycm Automated exposure control for dose reduction was used. CONTRAST: CT scan of the abdomen pelvis is performed with IV Contrast, patient injected with 100 mL of Omnipaqu e 300. FINDINGS- LUNG BASES- No significant abnormality is appreciated. LIVER/GB- No gross abnormality is appreciated. PANCREAS- No gross abnormality is seen. SPLEEN- No gross abnormality is seen. ADRENALS- No gross abnormality is seen. KIDNEYS/BLADDER-Bilateral renal cystic lesions are seen measuring up to 4.8 cm on the right and 1.6 c m on left. All measure 15 Hounsfield units or less suggestive of simple cyst. Bilateral intrarenal ca lculi are seen measuring up to 3 mm on the right and 4.4 mm on the left. BOWEL- no bowel dilatation. Normal appendix. LYMPH NODES- No greater than 1cm abdominal or pelvic lymph nodes are appreciated. OSSEOUS STRUCTURES- L3-L5 laminectomy with posterior pedicle screws and interconnecting rods at L4 a nd L5. Associated postsurgical changes in the left iliac bone. Severe facet disease is seen at L2/L3 and L3/L4. Extensive vertebral body hemangiomas also seen. OTHER- atherosclerotic change of the aorta. Rest it is enlarged. IMPRESSION- 1. Findings are compatible with bilateral simple renal cysts with all lesions measuring 15 Hounsfield units or less. 2. Prostate appears to be enlarged and somewhat heterogeneous correlate clinically. 3. There is a stable 2 mm right lower lobe pulmonary nodule.
== END | disposition home or self-care (01) ==
LOC: RADCTMAIN 16:33
PROVIDERS: ATTEND Urology
DX: N20.1 Calculus of ureter (principal)
CPT/HCPCS: 82565; 84520; 74177; 36415; Q9967

== ENCOUNTER → 2017-01-15 | Outpatient (CLI) | payer BC | END | disposition home or self-care (01) | LOC: LABWHC1 15:07 | PROVIDERS: ATTEND Psychiatry & Neurology Neurology | DX: R41.3 Other amnesia (principal) | CPT/HCPCS: 36415; 82306; 82607; 84439; 84443 ==

== ENCOUNTER → 2017-02-21 | Outpatient (CLI) | payer BC ==
--- NOTE | 2017-02-21 12:50 | FL ---
EXAMINATION TYPE: FL barium swallow DATE OF EXAM: 02/21/2017 CLINICAL HISTORY: Dysphasia TECHNIQUE: A double contrast esophagram is performed utilizing air and barium. A total of 0.9 minut es of fluoroscopic time was utilized during procedure. 32 images submitted. COMPARISON: None FINDINGS: The esophagus shows normal motility and emptying into the stomach. No evidence of hiatal h ernia or stricture noted. No significant gastroesophageal reflux was seen during real time performanc e of this study. IMPRESSION: No significant abnormality is seen to account for patient's symptoms.
== END | disposition home or self-care (01) ==
LOC: RADFLWHC 11:01
PROVIDERS: ATTEND Otolaryngology
DX: R49.0 Dysphonia (principal)
CPT/HCPCS: 74220

== ENCOUNTER 2017-06-25 10:51 | Day surgery (SDC) | payer BC ==
[2017-06-20 12:17] VITALS: BMI 25.0
[~2017-06-25 10:51] MED LIST: LACTATED RINGERS 1,000 ML IV SCH; LIDOCAINE 1% 20 ML VIAL (10MG/ML) FOR IV START INTRADERMA PRN
[2017-06-25 11:10] VITALS: RESP 16; TEMP 98
[2017-06-25] MEDS ORDERED: LIDOCAINE 1% INJ 10MG/ML (20 ML MDV) ONE (11:54)
[2017-06-25] MEDS ORDERED: PROPOFOL 10 MG/ML 20 ML VIAL IV ONE (11:54)
--- NOTE | 2017-06-25 11:59 | P.GSHP ---
History of Present Illness H&P Date: 06/25/17 Chief Complaint: Colon cancer screening Patient is here today for colonoscopy. He is not sure how long ago his last colonoscopy was. He believes he had colon polyps at that time. No family history of colon cancer. Some diarrhea but no rectal bleeding or melena. Past Medical History Past Medical History: Cancer, COPD, GERD/Reflux Additional Past Medical History / Comment(s): degenerative disk back and neck, sob , skin cancer History of Any Multi-Drug Resistant Organisms: None Reported Past Surgical History: Back Surgery, Hernia Repair, Orthopedic Surgery Additional Past Surgical History / Comment(s): neck surgery x 2, back fusion, lithotripsy, orif rt wrist, rt ankle tendon surgery, manuel eye surgery for lazy eye, REPAIR PARALYZIED VOCAL CORD, COLONOSCOPY, ORIF LT LEG HAS BRAN FROM KNEE TO ANKLE Past Anesthesia/Blood Transfusion Reactions: No Reported Reaction Smoking Status: Current every day smoker - Past Family History Brother(s) Family Medical History: Coronary Artery Disease (CAD) Father Family Medical History: Pneumonia Medications and Allergies Home Medications Medication Instructions Recorded Confirmed Type Omeprazole [PriLOSEC] 40 mg PO DAILY 09/21/13 06/25/17 History Varenicline Tartrate [Chantix] 1 tab PO DAILY 09/03/14 06/25/17 History Testosterone Cypionate 100 mg IM SA 09/04/14 06/25/17 History [Depo-Testosterone] PARoxetine HCL [Paxil] 40 mg PO DAILY 09/04/16 06/25/17 History Roflumilast [Daliresp] 500 mg PO DAILY 09/04/16 06/25/17 History Tamsulosin [Flomax] 0.4 mg PO DAILY #14 cap 10/22/16 06/25/17 Rx Carbidopa-Levodopa 25-100 mg 1 each PO TID 02/24/17 06/25/17 History [Sinemet 25-100] Hydrocodone/Acetaminophen [[place] 2 each PO Q6HR PRN 02/24/17 06/20/17 History 5-325] Ipratropium [place] 0.06%Nasal 1 spray EA NOSTRIL DAILY 02/24/17 06/25/17 History [Atrovent Nasal 0.06%] Montelukast [Singulair] 10 mg PO HS 02/24/17 06/25/17 History ALPRAZolam [Xanax] 1 mg PO Q8HR 06/20/17 06/20/17 History Allergies Allergy/AdvReac Type Severity Reaction Status Date / Time No Known Allergies Allergy Verified 06/20/17 12:09 Surgical - Exam Vital Signs Temp Pulse Resp BP Pulse Ox 98.0 F 87 16 148/91 94 L 06/25/17 11:08 06/25/17 11:08 06/25/17 11:08 06/25/17 11:08 06/25/17 11:08 Physical exam: General: Well-developed, well-nourished HEENT: Normocephalic, sclerae nonicteric Abdomen: Nontender, nondistended Extremities: No edema Neuro: Alert and oriented Assessment and Plan (1) Colon cancer screening Narrative/Plan: Will proceed with colonoscopy at this time. Current Visit: Yes Status: Acute Code(s): Z12.11 - ENCOUNTER FOR SCREENING FOR MALIGNANT NEOPLASM OF COLON SNOMED Code(s): 964787873
--- NOTE | 2017-06-25 12:10 | P.PCN ---
Date of Procedure: 06/25/17 Procedure(s) Performed: PREOPERATIVE DIAGNOSIS: Colon cancer screening POSTOPERATIVE DIAGNOSIS: Normal exam PROCEDURE: Colonoscopy ANESTHESIA: MAC SURGEON: Víctor Quispe M.D. SPECIMENS: None ENDOSCOPIC PROCEDURE: The patient was placed on the endoscopy table in the left decubitus position. The Olympus colonoscope was inserted into the anus and passed under direct visualization to the base of the cecum. The appendiceal orifice was visualized. From that point the scope was slowly withdrawn inspecting all surfaces carefully. There were no neoplastic inflammatory or polypoid lesions throughout the cecum, ascending, transverse, descending, sigmoid and rectum. There was n diverticulosis noted. Digital rectal examination was normal. The patient was taken to the recovery room in stable condition per anesthesia guidelines. RECOMMENDATIONS: Increase fiber. Routine follow-up.
[2017-06-25 12:30] VITALS: BP 145/84; PULSE 58
== END 2017-06-25 12:47 | disposition home or self-care (01) ==
LOC: ORWHC2ENDO 10:51
PROVIDERS: ATTEND Surgery
DX: Z12.11 Encounter for screening for malignant neoplasm of colon (principal); K57.30 Diverticulosis of large intestine without perforation or abscess without bleeding; Z86.010 Personal history of colon polyps; K21.9 Gastro-esophageal reflux disease without esophagitis; J44.9 Chronic obstructive pulmonary disease, unspecified; F17.210 Nicotine dependence, cigarettes, uncomplicated; G20 Parkinson's disease; Z79.899 Other long term (current) drug therapy
CPT/HCPCS: J2001; J2704; G0105

== ENCOUNTER → 2017-07-30 | Outpatient (CLI) | payer BC ==
--- NOTE | 2017-07-30 19:15 | US ---
EXAMINATION TYPE: US carotid duplex BILAT DATE OF EXAM: 07/30/2017 COMPARISON: NONE CLINICAL HISTORY: G20 Parkinsons,R41.3 Memory loss. EXAM MEASUREMENTS: RIGHT: Peak Systolic Velocity (PSV) cm/sec ----- Right CCA: 51.3 ----- Right ICA: 62.9 ----- Right ECA: 84.1 ICA/CCA ratio: 1.2 RIGHT: End Diastole cm/sec ----- Right CCA: 11.3 ----- Right ICA: 26.2 ----- Right ECA: 18.3 LEFT: Peak Systolic Velocity (PSV) cm/sec ----- Left CCA: 57.5 ----- Left ICA: 87.5 ----- Left ECA: 98.5 ICA/CCA ratio: 1.5 LEFT: End Diastole cm/sec ----- Left CCA: 15.7 ----- Left ICA: 27.0 ----- Left ECA: 22.6 VERTEBRALS (direction of flow): Right Vertebral: Antegrade Left Vertebral: Antegrade Rhythm: Normal No elevated velocities, no significant stenosis. IMPRESSION: There is antegrade flow in the vertebral arteries. The images and measurements suggest c lose to 0% stenosis in both internal carotid arteries. Criteria for Assigning % of Stenosis / Diameter reduction (Estimation based on the indirect measurements of the internal carotid artery velocities (ICA PSV). 1. Normal (no stenosis)=ICA PSV < 125 cm/s: ratio < 2.0: ICA EDV<40 cm/s. 2. Less than 50% stenosis=ICA PSV < 125 cm/s: ratio < 2.0: ICA EDV<40 cm/s. 3. 50 to 69% stenosis=ICA PSV of 125 to 230 cm/s: ration 2.0 ? 4.0: ICA EDV 40-100 cm/s. 4. Greater than 70% stenosis to near occlusion= ICA PSV > 230 cm/s: ratio > 4.0: ICA EDV > 100 cm/s. 5. Near occlusion= ICA PSV velocities may be low or undetectable: variable ratio and ICA EDV. 6. Total occlusion=unable to detect flow.
== END | disposition home or self-care (01) ==
LOC: RADUSWWP 16:51
PROVIDERS: ATTEND Psychiatry & Neurology Neurology
DX: G20 Parkinson's disease (principal); R41.3 Other amnesia
CPT/HCPCS: 93880

== ENCOUNTER → 2018-01-26 | Outpatient (CLI) | payer BC ==
--- NOTE | 2018-01-27 17:08 | MR ---
EXAMINATION TYPE: MR cervical spine wo/w con DATE OF EXAM: 01/26/2018 COMPARISON: 06/16/2013 presurgical cervical spine HISTORY: Left arm and neck pain x4 months, Previous Lumbar surgery, Gadavist 7.5 TECHNIQUE: Multiplanar, multisequence images of the cervical spine were acquired utilizing 7.0 mL intravenous Ga davist gadolinium contrast. Diffusion weighted imaging was performed. C2-C3: Interval disc bulge with anterior thecal sac contact. No cord contact is evident. No spinal ca nal stenosis or neural foraminal stenosis present. C3-C4: Broad-based disc bulge is present with greater to the right paracentral region. There is bilat eral foraminal stenosis greater on the right. Correlate with the radicular symptoms. C4-C5: Broad-based disc bulge with moderate anterior thecal sac compression. This has cord contact. N o AP spinal canal stenosis present. There is moderate to severe bilateral foraminal stenosis. C5-C6: Large broad-based disc bulge is present. This is greater to the right paracentral region. This is cord contact and cord flattening. No spinal canal stenosis is present moderate bilateral foramina l stenosis present C6-C7: Left paracentral disc bulge is present with anterior thecal sac contact. Cord contact is prese nt. Cord deformity on the left paracentral canal is present. There is some signal change within the s chen cord posterior to the C6-7 level. Correlate for encephalomalacia in the left spinal cord. C7-T1: Broad-based disc bulging is anterior thecal sac contact. No spinal canal stenosis is present. No disc herniation is evident. Postsurgical laminectomies are present C4-C7. IMPRESSION: 1. Postsurgical changes posterior cervical spine. 2. No spinal canal stenosis present. Foraminal stenosis is present. 3. Disc bulging through multiple levels discussed above. 4. Disc bulging has cord contact C6-7 with possible encephalomalacia. 5. Cord contact C5-6. For 7 correlate for radicular symptoms, greater on the right at C3-4 level disc bulging.
== END | disposition home or self-care (01) ==
LOC: RADMRIMAIN 14:44
PROVIDERS: ATTEND Family Medicine
DX: M99.71 Connective tissue and disc stenosis of intervertebral foramina of cervical region (principal); M50.21 Other cervical disc displacement, high cervical region
CPT/HCPCS: 72156; A9581

== ENCOUNTER 2019-07-18 18:23 | Emergency (ER) | payer MEDICARE ==
[2019-07-18 18:30] VITALS: RESP 20
--- NOTE | 2019-07-18 18:59 | ED ---
General Adult HPI - General Chief complaint: Skin/Abscess/Foreign Body Stated complaint: abscess on buttocks Time Seen by Provider: 07/18/19 18:40 Source: patient Mode of arrival: ambulatory Limitations: no limitations - History of Present Illness Initial comments: 58-year-old male patient presents to the emergency department today for evaluation of a wound to the right hip. Patient states that he has been sick over the last couple weeks with upper respiratory infection. States that his primary care physician was giving him injections of steroids and antibiotics for a 3 day period as well as oral antibiotics and steroids. Patient states that he completed all courses and and does feel somewhat improved however his orthostatic, and back today. Patient states that this morning his right hip was hurting and when he inspected the area he noticed a wound and bruising. He was unsure if it was related to the injections. He denies any use of anticoagulants or antiplatelet medications. Denies any recurrent fevers. States his breathing is improved but he is still having wheezing. States he is using inhalers as directed. He denies any recent travel or sick contacts. Patient denies any recent rash, chest pain, abdominal pain, nausea, vomiting, diarrhea, constipation, back pain, numbness, tingling, dizziness, weakness, hematuria, dysuria, urinary urgency, urinary frequency, headache, visual changes, or any other complaints. - Related Data Home Medications Medication Instructions Recorded Confirmed Omeprazole [PriLOSEC] 40 mg PO DAILY 09/21/13 06/25/17 Varenicline Tartrate [Chantix] 1 tab PO DAILY 09/03/14 06/25/17 Testosterone Cypionate 100 mg IM SA 09/04/14 06/25/17 [Depo-Testosterone] PARoxetine HCL [Paxil] 40 mg PO DAILY 09/04/16 06/25/17 Roflumilast [Daliresp] 500 mg PO DAILY 09/04/16 06/25/17 Carbidopa-Levodopa 25-100 mg 1 each PO TID 02/24/17 06/25/17 [Sinemet 25-100] Hydrocodone/Acetaminophen [[place] 2 each PO Q6HR PRN 02/24/17 06/20/17 5-325] Ipratropium [place] 0.06%Nasal 1 spray EA NOSTRIL DAILY 02/24/17 06/25/17 [Atrovent Nasal 0.06%] Montelukast [Singulair] 10 mg PO HS 02/24/17 06/25/17 ALPRAZolam [Xanax] 1 mg PO Q8HR 06/20/17 06/20/17 Previous Rx's Medication Instructions Recorded Tamsulosin [Flomax] 0.4 mg PO DAILY #14 cap 10/22/16 Ipratropium-Albuterol Nebulize 3 ml INHALATION Q4H PRN #30 neb 07/18/19 [Duoneb 0.5 mg-3 mg/3 ml Soln] Nystatin 100,000 Unit/ml Susp 5 ml PO QID #200 ml 07/18/19 [Mycostatin Oral Susp] Allergies Allergy/AdvReac Type Severity Reaction Status Date / Time No Known Allergies Allergy Verified 07/18/19 18:30 Review of Systems ROS Statement: Those systems with pertinent positive or pertinent negative responses have been documented in the HPI. ROS Other: All systems not noted in ROS Statement are negative. Past Medical History Past Medical History: Cancer, COPD, GERD/Reflux Additional Past Medical History / Comment(s): degenerative disk back and neck, sob , skin cancer, parkinsons History of Any Multi-Drug Resistant Organisms: None Reported Past Surgical History: Back Surgery, Hernia Repair, Orthopedic Surgery Additional Past Surgical History / Comment(s): neck surgery x 2, back fusion, lithotripsy, orif rt wrist, rt ankle tendon surgery, manuel eye surgery for lazy eye, REPAIR PARALYZIED VOCAL CORD, COLONOSCOPY, ORIF LT LEG HAS BRAN FROM KNEE TO ANKLE Past Anesthesia/Blood Transfusion Reactions: No Reported Reaction Past Psychological History: Anxiety Smoking Status: Current every day smoker Past Alcohol Use History: None Reported Past Drug Use History: None Reported - Past Family History Brother(s) Family Medical History: Coronary Artery Disease (CAD) Father Family Medical History: Pneumonia General Exam Limitations: no limitations General appearance: alert, in no apparent distress, other (This is a well- developed, well-nourished adult male patient in no acute distress. Vital signs upon presentation are temperature 98.7F, pulse 108, respirations 20, blood pressure 192/96, pulse ox 95% on room air.) Eye exam: Present: normal appearance, PERRL, EOMI. Absent: scleral icterus, conjunctival injection, periorbital swelling ENT exam: Present: mucous membranes moist. Absent: normal oropharynx (Pharyngeal erythema, white patches in the throat) Respiratory exam: Present: wheezes (Diffuse expiratory wheezing in the posterior lung carrillo). Absent: normal lung sounds bilaterally, respiratory distress, rales, rhonchi, stridor Cardiovascular Exam: Present: regular rate, normal rhythm, normal heart sounds. Absent: systolic murmur, diastolic murmur, rubs, gallop, clicks GI/Abdominal exam: Present: soft, normal bowel sounds. Absent: distended, tenderness, guarding, rebound, rigid Extremities exam: Present: full ROM, normal capillary refill, other (Patient has ecchymosis noted to the left lateral hip over the buttock region. There is a superficial ulceration noted with presence of granulation tissue. There is mild erythema. No purulent drainage. No sign of infection.). Absent: normal inspection, tenderness, pedal edema, joint swelling, calf tenderness Neurological exam: Present: alert, oriented X3, CN II-XII intact Psychiatric exam: Present: normal affect, normal mood Skin exam: Present: warm, dry, intact, normal color. Absent: rash Course Vital Signs 07/18/19 07/18/19 07/18/19 18:25 18:29 19:46 Temperature 98.7 F Pulse Rate 108 H 70 72 Respiratory 20 20 Rate Blood Pressure 192/96 130/89 O2 Sat by Pulse 95 96 Oximetry 07/18/19 19:53 Temperature Pulse Rate 75 Respiratory Rate Blood Pressure O2 Sat by Pulse Oximetry Medical Decision Making - Medical Decision Making 58-year-old male patient presents to the emergency department today for evaluation of wound to the left hip and sore throat. Physical examination did reveal pharyngeal erythema with white plaques. There is also a small ulceration noted to the left hip with some surrounding ecchymosis. This is felt may be related to his steroid injections. Does appear to be healing. No sign of infection. He is afebrile. He'll be discharged with instructions to apply antibiotic ointment to the site. He is urged to monitor this and follow-up with his primary care physician if it starts to worsen. He is given a breathing treatment due to wheezing in the posterior lung carrillo. He will discharge with DuoNeb and nystatin for what is believed to be oral candidiasis. He'll be discharged with his primary care physician for recheck in 1-2 days. Return parameters were discussed in detail. He verbalizes understanding and agrees with this plan. Disposition Clinical Impression: Wound of right buttock, COPD (chronic obstructive pulmonary disease), Oral candidiasis Disposition: HOME SELF-CARE Condition: Good Instructions (If sedation given, give patient instructions): Oral Candidiasis (ED), COPD (Chronic Obstructive Pulmonary Disease) (ED), Acute Wound Care (ED) Additional Instructions: Do home breathing treatments every 4-6 hours as needed. Continue other medications as directed. Monitor wound, if it grows incisor was start straining pus return for further evaluation. Follow up with your primary care physician for recheck in 1-2 days. Return to the emergency department for any other new, worsening, or concerning symptoms. Prescriptions: Ipratropium-Albuterol Nebulize [Duoneb 0.5 mg-3 mg/3 ml Soln] 3 ml INHALATION Q4H PRN #30 neb PRN Reason: Wheezing/Shortness of breath Nystatin 100,000 Unit/ml Susp [Mycostatin Oral Susp] 5 ml PO QID #200 ml Is patient prescribed a controlled substance at d/c from ED?: No Referrals: Saeed David MD [Primary Care Provider] - 1-2 days
[2019-07-18] MEDS ORDERED: IPRATROPIUM-ALBUTEROL 3 ML NEB INHALATION STA (19:31)
[2019-07-18 20:03] VITALS: BP 132/87; PULSE 80; TEMP 98
== END 2019-07-18 20:03 | disposition home or self-care (01) ==
LOC: EC 18:23
DX: S70.02XA Contusion of left hip, initial encounter (principal); J44.9 Chronic obstructive pulmonary disease, unspecified; B37.0 Candidal stomatitis; L98.419 Non-pressure chronic ulcer of buttock with unspecified severity; K21.9 Gastro-esophageal reflux disease without esophagitis; G20 Parkinson's disease; F41.9 Anxiety disorder, unspecified; F17.200 Nicotine dependence, unspecified, uncomplicated; Z79.890 Hormone replacement therapy; Z79.899 Other long term (current) drug therapy; Z85.828 Personal history of other malignant neoplasm of skin; Z87.39 Personal history of other diseases of the musculoskeletal system and connective tissue; Z98.1 Arthrodesis status; Z83.6 Family history of other diseases of the respiratory system; X58.XXXA Exposure to other specified factors, initial encounter
CPT/HCPCS: 87070; 94640; 99283

== ENCOUNTER → 2020-07-28 | Outpatient (CLI) | payer MEDICARE ==
--- NOTE | 2020-07-28 18:28 | CT ---
EXAMINATION TYPE: CT abdomen pelvis wo con DATE OF EXAM: 07/28/2020 COMPARISON: 11/14/2016. HISTORY: Generalized abdominal pain. CT DLP: 300.9 mGycm Automated exposure control for dose reduction was used. TECHNIQUE: Helical acquisition of images was performed from the lung bases through the pelvis. FINDINGS: LUNG BASES: No significant abnormality is appreciated. LIVER/GB: No significant abnormality is appreciated. PANCREAS: No significant abnormality is seen. SPLEEN: No significant abnormality is seen. ADRENALS: No significant abnormality is seen. KIDNEYS: No bilateral hydronephrosis is seen. Stable 1.8 cm mildly hyperattenuating exophytic left re nal lesion in the lower pole. Increased size of simple 8 cm right renal cyst in lower pole (previousl y measured 4.6 cm). Additional 2 smaller simple appearing left renal cysts measuring up to 1.3 cm. Th ere are nonobstructing bilateral renal calculi, one in each kidney measuring 2 mm on the right and 4 mm on the left. FREE AIR: No free air is visualized RETROPERITONEAL ADENOPATHY: None visualized REPRODUCTIVE ORGANS: No significant abnormality is seen URINARY BLADDER: No significant abnormality is seen. PELVIC ADENOPATHY: Prostatomegaly with calcifications. OSSEOUS STRUCTURES: L4-L5 posterior instrumented fusion seen. BOWEL: No significant abnormality is seen. OTHER: Moderate atherosclerotic disease. IMPRESSION: Interval increase in size of large right renal cyst. Otherwise no acute abnormality. Stable additional bilateral renal cysts include complex on the left. Chronic and incidental findings as above.
== END | disposition home or self-care (01) ==
LOC: RADCTMAIN 17:42
PROVIDERS: ATTEND Family Medicine
DX: N28.1 Cyst of kidney, acquired (principal)
CPT/HCPCS: 74176

== ENCOUNTER → 2021-08-21 | Outpatient (CLI) | payer MEDICARE ==
--- NOTE | 2021-08-21 22:08 | CT ---
EXAMINATION TYPE: CT abdomen wo/w con DATE OF EXAM: 08/21/2021 COMPARISON: CT dated 07/28/2020 HISTORY: Renal cysts CT DLP: 1124 mGycm Automated exposure control for dose reduction was used. TECHNIQUE: Helical acquisition of images was performed from the lung bases through the top of iliac crest to include entire abdomen. CONTRAST: Performed with Oral Contrast and with IV Contrast, patient injected with 100 mL of Isovue 300. FINDINGS: LUNG BASES: No significant abnormality is appreciated. LIVER/GB: Questionable gallbladder sludge. Few scattered hepatic hypodensities likely representing he patic cysts. PANCREAS: Fatty infiltration of the pancreatic head. SPLEEN: No significant abnormality is seen. ADRENALS: No significant abnormality is seen. KIDNEYS: Bilateral nonobstructing renal calculi measuring up to 5 mm at the midpole of the left kidne y. Slightly hyperdense cyst is seen at the posterior aspect of the left kidney measuring 21 mm withou t significant enhancement, stable. Large simple cyst is seen at the posterior aspect of the right kid ivan without suspicious feature measuring 7.8 cm compared to 7.7 cm previously. Other scattered smalle r renal cysts without suspicious features or abnormal enhancement. Unremarkable kidneys otherwise. BOWEL: Grossly unremarkable stomach, duodenum and visualized small bowel. No gross mass of the visua lized portion of the colon. Normal appendix. LYMPH NODES: No pathologically enlarged abdominal lymph nodes. OSSEOUS STRUCTURES: Lumbar fixation casting artifacts on the adjacent structures. Suspected multilev el lower thoracic vertebral body hemangioma. FREE AIR: No free air is visualized. OTHER: Scattered arterial atherosclerotic calcifications. No free abdominal fluid. Fat-containing umb ilical hernia. IMPRESSION: Grossly stable slightly hyperdense nonenhancing cyst at the posterior aspect of the left kidney. Bila teral simple renal cysts demonstrating no significant interval change as compared to the previous CT scan without suspicious feature or abnormal enhancement. Nonobstructing bilateral renal calculi and o ther incidental findings as described above.
== END | disposition home or self-care (01) ==
LOC: RADCTMAIN 16:51
PROVIDERS: ATTEND Urology
DX: N28.1 Cyst of kidney, acquired (principal); N20.0 Calculus of kidney
CPT/HCPCS: 74170; Q9967

== ENCOUNTER → 2023-01-17 | Outpatient (CLI) | payer MEDICARE ==
[2023-01-17 16:11] LABS: ALT 25 U/L (10-49); AST 24 U/L (14-35); Chol/HDL Ratio 5.53 Ratio; LDL Cholesterol,Calculated 109.8 mg/dL (0.0-131.0)
== END | disposition home or self-care (01) ==
LOC: LABWHC1 09:57
PROVIDERS: ATTEND Internal Medicine
DX: E78.2 Mixed hyperlipidemia (principal)
CPT/HCPCS: 36415; 80061; 84450; 84460